=== PATIENT | female | born 1990 | race Caucasian/White ===

== ENCOUNTER → 2019-01-21 08:54 | Outpatient (CLI) | payer OTHER, SELFPAY ==
--- NOTE | 2019-01-21 09:05 | US_ITS ---
STUDY: ULTRASOUND TRANSVAGINAL CLINICAL: Female, 28 years old. Follicular count. TECHNIQUE: Transvaginal COMPARISON: None. FINDINGS: Normal uterine size measuring 7.3 x 4.1 x 3.3 cm in maximal craniocaudal dimension. There are no myometrial masses. Normal endometrial thickness measuring 10 mm. There are no endometrial masses, and there is no fluid in the endometrial cavity. Normal uterine cervix. Normal right ovary, measuring 5.5 x 8.1 x 2.0 cm. There are multiple follicles without a dominant cyst. There are 28 follicles less than 10 mm within the right ovary with no demonstrated follicles greater than 10 mm. Normal left ovary, measuring 4.2 x 3.3 x 2.0 cm. There are multiple follicles without a dominant cyst. There are 36 follicles less than 10 mm in the left ovary with no follicles greater than 10 mm. There is mild free fluid in the pelvis. US/Transvaginal Non- IMPRESSION: 1. Bilateral ovarian follicular count as above with otherwise no evidence of acute pelvic process. Electronically Signed: Dino Taylor DO at 10:44 EDT , Service support ,
[2019-01-21 10:12] LABS: Estradiol 85.7 pg/mL; Luteinizing Hormone 16.8 mIU/mL
[2019-01-21 10:20] LABS: Progesterone Level 1.87 ng/mL (See Comment)
== END ==
DX: Z31.41 Encounter for fertility testing (principal)
CPT/HCPCS: 36415; 76830; 82670; 83002; 84144; 93976